=== PATIENT | female | born 1990 | race African-American/Black ===

== ENCOUNTER 2019-02-23 09:57 | Emergency (ER) | payer BC, MEDICAID ==
[~2019-02-23] VITALS: Ht 154.9 cm; Wt 58.1 kg
[~2019-02-23 09:57] MED LIST: PREN-234 PO
[2019-02-23 10:05] VITALS: BP 101/75
--- NOTE | 2019-02-23 10:13 | NUR ---
PT AMBULATED TO ED BED 09, FLU SWAB COLLECTED
--- NOTE | 2019-02-23 10:19 | NUR ---
28 y/o f c/c flu symptoms: cough, watery eyes, runny nose x1 week. per pt took medication with no relief. pt not up to date with flu shot and family sick at home. pt nka. hx hypothyroidism. rx levothyroxine. no n/v/d. side rail x1. family at bedside.
[2019-02-23] MEDS ORDERED: IBUPROFEN 800 MG TAB PO ONE (10:55)
[2019-02-23 11:48] VITALS: BP 101/75
--- NOTE | 2019-02-23 11:48 | NUR ---
Patient discharged with v/s stable. Written and verbal after care instructions given and explained. Patient alert, oriented and verbalized understanding of instructions. Ambulatory with steady gait. All questions addressed prior to discharge. ID band removed. Patient advised to follow up with PMD. Rx of TAMIFLU,PROMETHAZINE,MOTRIN given. Patient educated on indication of medication including possible reaction and side effects. Opportunity to ask questions provided and answered.
== END 2019-02-23 11:48 | disposition home or self-care (01) ==
LOC: MED 09:57
DX: J10.1 Influenza due to other identified influenza virus with other respiratory manifestations (principal); R51 Headache; R07.89 Other chest pain; H57.13 Ocular pain, bilateral; J45.909 Unspecified asthma, uncomplicated; E03.9 Hypothyroidism, unspecified
CPT/HCPCS: 87804; 99283

== ENCOUNTER 2020-04-22 11:19 | Emergency (ER) | payer MEDICAID ==
[~2020-04-22] VITALS: Ht 154.9 cm; Wt 59.0 kg
[2020-04-22 11:39] VITALS: BP 122/70
[2020-04-22] MEDS ORDERED: HYDROcodone/APAP 5/325 MG 1 TAB TAB PO ONE (12:30)
[2020-04-22 12:33] LABS: BASOPHILS % (AUTO) 0.4 % (0.0-2.0); EOSINOPHILS # (AUTO) 0.2 K/uL (0-0.4); EOSINOPHILS % (AUTO) 2.8 % (0.0-4.0); LYMPHOCYTES # (AUTO) 1.9 K/uL (2.5-16.5); LYMPHOCYTES % (AUTO) 32.1 % (20.5-51.1); MEAN CORPUSCULAR HEMOGLOBIN 31 pg (27-31); MEAN CORPUSCULAR HGB CONC 34 g/dL (33-37); MEAN CORPUSCULAR VOLUME 91.4 fL (80-94); MONOCYTES # (AUTO) 0.3 K/uL (0.8-1.0); NEUTROPHILS # (AUTO) 3.6 K/uL (1.8-7.7); NEUTROPHILS % (AUTO) 59.7 % (42.2-75.2); PLATELET COUNT (AUTO) 180 K/uL (140-450); RED BLOOD CELL COUNT(AUTO) 3.83 MIL/uL (4.20-5.40); RED CELL DISTRIBUTION WIDTH 14.5 % (11.6-13.7); WHITE BLOOD COUNT (AUTO) 6.1 K/uL (4.8-10.8)
[2020-04-22 13:27] LABS: ALBUMIN 3.5 g/dL (3.4-5.0); ANION GAP 11.8 (8-16); CARBON DIOXIDE 26.9 mmol/L (21-32); CREATININE 0.8 mg/dL (0.6-1.3); POTASSIUM 3.7 mmol/L (3.5-5.1); PROTHROMBIN TIME 9.5 secs (10.8-13.4); TOTAL BILIRUBIN 0.3 mg/dL (0.0-1.0)
[2020-04-22 14:06] VITALS: BP 119/79
[2020-04-22] MEDS ORDERED: ACET-2619 PO (14:07)
== END 2020-04-22 14:06 | disposition home or self-care (01) ==
LOC: MED 11:19
DX: R07.89 Other chest pain (principal); E03.9 Hypothyroidism, unspecified; Z79.899 Other long term (current) drug therapy
CPT/HCPCS: 36415; 71045; 80053; 81025; 83880; 84484; 85025; 85379; 85610; 85730; 93005; 99285

== ENCOUNTER 2022-04-06 09:04 | Emergency (ER) | payer MEDICAID ==
[~2022-04-06] VITALS: Ht 154.9 cm; Wt 62.6 kg
[~2022-04-06 09:04] MED LIST changes: +ACET-2619 PO
[2022-04-06 09:12] VITALS: BP 119/86
--- NOTE | 2022-04-06 09:24 | NUR ---
Patient ambulated to bed 7.
--- NOTE | 2022-04-06 09:35 | NUR ---
31 y/o female bib self for c/o blisters to her vaginal labia x 4 days. Patient reports she has had fever and it gutierrez when she pees. Patient is currently on antibiotic for an ear infection. Patient states she has swelling and discharge from her vagina. Denies any new sexual contacts. Medical History: Hypothyroid NKDA
--- NOTE | 2022-04-06 09:46 | NUR ---
DR WHELAN AT BEDSIDE EVALUATING PT
[2022-04-06 10:33] LABS: APPEARANCE,URINE CLOUDY (CLEAR); BILIRUBIN,URINE 2+ (NEGATIVE); BLOOD, URINE 2+ (NEGATIVE); COLOR,URINE YELLOW (YELLOW); LEUKOCYTE ESTERASE ,URINE 2+ (NEGATIVE); NITRITE, URINE NEGATIVE (NEGATIVE); UGLUCOSE NEGATIVE (NEGATIVE)
--- NOTE | 2022-04-06 10:55 | NUR ---
Dr. Thurman re-evaluating patient at bedside.
--- NOTE | 2022-04-06 11:00 | NUR ---
Female Procurement Manager accompanied female patient for Pelvic Exam.
[2022-04-06 11:15] LABS: RBC,URINE NONE SEEN /HPF (0-5); WBC,URINE 60-80 /HPF (0-5)
--- NOTE | 2022-04-06 12:55 | NUR ---
Dr. Thurman re-evaluating patient at bedside.
[2022-04-06] MEDS ORDERED: LOTC TP (13:02)
[2022-04-06] MEDS ORDERED: VALA1TAB40 PO (13:02)
[2022-04-06] MEDS ORDERED: NAPR-1704 PO (13:02)
[2022-04-06] MEDS ORDERED: CHLO473S62 PO (13:02)
[2022-04-06] MEDS ORDERED: LIDO15CR2 TP (13:02)
[2022-04-06] MEDS ORDERED: NITR100C7 PO (13:04)
[2022-04-06 13:17] VITALS: BP 116/71
--- NOTE | 2022-04-06 13:17 | NUR ---
Patient discharged with v/s stable. Written and verbal after care instructions given. Patient alert, oriented and verbalized understanding of instructions. Ambulatory with steady gait. All questions addressed prior to discharge. ID band removed. Patient advised to follow up with PMD. Rx of Peridex, Lidocaine, Lotrimin, Naproxen, Macrobid and Valacyclovir given. Opportunity to ask questions provided and answered. WORK NOTE HANDED TO PATIENT.
--- NOTE | 2022-04-06 13:18 | NUR ---
The patient's care was reviewed and supervised by Essie De La Vega RN.
== END 2022-04-06 13:17 | disposition home or self-care (01) ==
LOC: MED 09:04
DX: A60.09 Herpesviral infection of other urogenital tract (principal); Z79.899 Other long term (current) drug therapy
CPT/HCPCS: 81001; 81025; 87070; 87086; 87210; 87491; 99285

== ENCOUNTER 2023-11-08 16:01 | Emergency (ER) | payer MEDICAID ==
[~2023-11-08] VITALS: Ht 154.9 cm; Wt 66.7 kg
[~2023-11-08 16:01] MED LIST changes: +CHLO473S62 PO; +LIDO15CR2 TP; +LOTC TP; +NAPR-1704 PO; +NITR100C7 PO; +VALA1TAB40 PO
[2023-11-08 16:27] VITALS: BP 124/73; PULSE 58; RESP 18; TEMP 98.2; O2SAT 100
[2023-11-08 17:02] VITALS: BP 124/73; PULSE 58; RESP 18; TEMP 98.2
[2023-11-08 17:28] LABS: BASOPHILS % (AUTO) 0.4 % (0.0-2.0); EOSINOPHILS # (AUTO) 0.2 K/uL (0-0.4); EOSINOPHILS % (AUTO) 2.7 % (0.0-4.0); HEMATOCRIT 33.2 % (36-48); HEMOGLOBIN 11.4 g/dL (12.0-16.0); LYMPHOCYTES # (AUTO) 2.3 K/uL (2.5-16.5); LYMPHOCYTES % (AUTO) 35.6 % (20.5-51.1); MEAN CORPUSCULAR HEMOGLOBIN 31 pg (27-31); MEAN CORPUSCULAR HGB CONC 34 g/dL (33-37); MEAN CORPUSCULAR VOLUME 91.8 fL (80-94); MONOCYTES # (AUTO) 0.4 K/uL (0.8-1.0); MONOCYTES % (AUTO) 6.7 % (1.7-9.3); NEUTROPHILS # (AUTO) 3.5 K/uL (1.8-7.7); NEUTROPHILS % (AUTO) 54.6 % (42.2-75.2); PLATELET COUNT (AUTO) 185 K/uL (140-450); RED BLOOD CELL COUNT(AUTO) 3.62 MIL/uL (4.20-5.40); RED CELL DISTRIBUTION WIDTH 13.7 % (11.6-13.7); WHITE BLOOD COUNT (AUTO) 6.4 K/uL (4.8-10.8)
[2023-11-08] MEDS ORDERED: ALUMINUM HYD/MAG/SIMETHICONE 30 ML UDC ONE (17:32)
[2023-11-08] MEDS ORDERED: DICYCLOMINE HCL LIQUID 10 MG/5 ML UDC ONE (17:32)
[2023-11-08] MEDS: DICYCLOMINE HCL LIQUID 20 MG, ALUMINUM HYD/MAG/SIMETHICONE 30 ML, LIDOCAINE VISCOUS 2% ... PO ONE (17:34)
[2023-11-08] MEDS ORDERED: FAMO-92 PO (17:36)
[2023-11-08 17:41] LABS: ANION GAP 10.1 (8-16); CARBON DIOXIDE 29.2 mmol/L (21-32); CREATININE 0.6 mg/dL (0.6-1.3); POTASSIUM 3.3 mmol/L (3.5-5.1)
[2023-11-08 17:44] LABS: INR 0.97 (0.8-1.2); PARTIAL THROMBOPLASTIN TIME 24.3 secs (22-35.6); PROTHROMBIN TIME 10.2 secs (10.8-13.4)
[2023-11-08 17:47] VITALS: O2SAT 100
[2023-11-08 17:50] VITALS: O2SAT 100
== END 2023-11-08 18:11 | disposition home or self-care (01) ==
LOC: MED 16:01
DX: K21.9 Gastro-esophageal reflux disease without esophagitis (principal); R07.9 Chest pain, unspecified; E03.9 Hypothyroidism, unspecified; Z79.899 Other long term (current) drug therapy
CPT/HCPCS: 36415; 71045; 80048; 81025; 83880; 84484; 85025; 85610; 85730; 93005; 99285; Q0092